=== PATIENT | female | born 1960 | race Caucasian/White ===

== ENCOUNTER 2017-04-26 07:56 | Emergency (ER) | payer OTHER ==
[~2017-04-26] VITALS: Ht 165.1 cm; Wt 90.7 kg
[~2017-04-26 07:56] MED LIST: CALCIUM 1,2001 EACH PO; CALCIUM 600 +1 EAC4 PO; FISH OIL PO; FISH OIL500 MG PO; HYDROCODON-ACE1 EA10 PO; STOOL SOFTENER100 MG PO; SYNTHROID150 MCG PO; VITAMIN D250000 UNIT PO
[2017-04-26] MEDS ORDERED: LISINOPRIL10 MG PO (08:22)
[2017-04-26] MEDS ORDERED: LOVASTATIN20 MG PO (08:22)
[2017-04-26] MEDS ORDERED: ZITHROMAX250 MG PO (08:28)
== END 2017-04-26 08:46 | disposition home or self-care (01) ==
LOC: ED 07:56
DX: J40 Bronchitis, not specified as acute or chronic (principal); F41.9 Anxiety disorder, unspecified; Z87.891 Personal history of nicotine dependence; Z88.5 Allergy status to narcotic agent; Z79.899 Other long term (current) drug therapy
CPT/HCPCS: 87081; 87880; 99283

== ENCOUNTER 2017-11-29 08:16 | Day surgery (SDC) | payer OTHER ==
[~2017-11-29] VITALS: Ht 165.1 cm; Wt 90.7 kg
[~2017-11-29 08:16] MED LIST changes: +LISINOPRIL10 MG PO; +LOVASTATIN20 MG PO; +ZITHROMAX250 MG PO
--- NOTE | 2017-11-29 10:24 | NUR ---
11/29/17 Denisha Montero 1021-PATIENT ARRIVED TO PACU ON 3L NC O2 SAT 99% PATIENT AWAKE DROWSY DENIES PAIN OR NAUSEA. ABDOMEN SOFT ENCOURAGED TO PASS FLATUS.
--- NOTE | 2017-12-02 08:11 | OR ---
[facility] [address], [place] [address] Signed DATE OF OPERATION: 11/29/2017 SURGEON: Linda Rodriguez MD PREOPERATIVE DIAGNOSES: 1. Anemia. 2. Constipation and diarrhea. 3. Generalized abdominal pain. 4. Nausea. POSTOPERATIVE DIAGNOSES: 1. Antral gastric ulcer. 2. Unremarkable colonoscopy. PROCEDURES: 1. EGD with CLOtest and biopsies of the duodenum and antrum. 2. Colonoscopy without biopsies. ESTIMATED BLOOD LOSS: None. INDICATIONS: Mick is a 57-year-old female, who was asked to see me for both upper and lower endoscopy. She has been anemic for quite some time. She has been using iron tablets without any success. She had a female exam recently and said everything went fine. In the office, she did not specifically talk about GI complaints, but yet there is a history of constipation, diarrhea, and generalized abdominal pain associated with nausea. She does not describe black tarry stool. There is no family history of colon cancer or polyps. In the office, I gave her a pamphlets on both upper and lower endoscopy. We discussed the nature of the 2 tests along with the risks including, but not limited to, gas bloating, crampy abdominal pain, bleeding, perforation, requiring surgery, and missed diagnosis. We also discussed the need for IV conscious sedation. She had expressed understanding and wished to proceed. PROCEDURE NOTE: Mick was taken into our endoscopy suite and placed in the supine semi-recumbent position. She was given divided doses of 9 mg of Versed and 175 mcg of fentanyl to cover the case. The posterior oropharynx was anesthetized with Hurricaine spray. A bite block was utilized for the case. The adult gastroscope was introduced and advanced all the way out into the third portion of the duodenum under direct visualization of Electronically Signed By: LINDA RODRIGUEZ MD 12/02/17 0811 PATIENT NAME: MICK CHOW OPERATIVE REPORT DATE OF : 56 PHYSICIAN: LINDA RODRIGUEZ MD REPORT #: [id number] REPORT IS CONFIDENTIAL AND NOT TO BE RELEASED WITHOUT AUTHORIZATION [facility] [address], [place] [address] Signed camera without difficulty. The duodenum and pyloric channel were unremarkable. She had just a little bit of inflammation in the pylorus and now in the antrum, she clearly has an ulcer with some dried blood. I am sure this is the source of her anemia. No active bleeding at this time. We took biopsies of the antrum for CLOtest as well as pathologic review. We took pictures for photodocumentation. The rest of the stomach was unremarkable. No evidence of hiatal hernia. The scope was withdrawn up to the area of GE junction, which was compliant without stricture. The Z-line remains intact. The distal middle and upper esophagus were unremarkable. After this, the gas was suctioned out and the colonoscope removed. Mick tolerated the procedure quite well. Mick was then rotated in the left lateral decubitus position. She was maintained on IV sedation with the Versed and fentanyl. A digital rectal exam was performed and this was unremarkable. The adult colonoscope was then introduced and advanced all around into the cecum under direct visualization of camera without difficulty. The scope was then slowly withdrawn. Her prep was good. We saw no pathology throughout the entire colon or rectum. Upon retroflexion of the scope, there was no additional pathology noted above the anal canal. After this, the gas was suctioned out and the colonoscope removed. Mick tolerated the procedure quite well. RECOMMENDATIONS: I will see Mick back in my office in 7 to 14 days to review her results. I wrote her a prescription for Prilosec 20 mg p.o. b.i.d. for 2 months with just a one refill. Linda Rodriguez MD ALB/MODL /[id number] cc: MD Moi Mckenna, [facility] Electronically Signed By: LINDA RODRIGUEZ MD 12/02/17 0811 PATIENT NAME: MICK CHOW OPERATIVE REPORT DATE OF : 56 PHYSICIAN: LINDA RODRIGUEZ MD REPORT #: [id number] REPORT IS CONFIDENTIAL AND NOT TO BE RELEASED WITHOUT AUTHORIZATION
== END 2017-11-29 11:00 | disposition home or self-care (01) ==
LOC: OPS 08:16 → DS 08:16 → OPS 09:45 → DS 09:45 → OPS 11:00
PROVIDERS: Colon & Rectal Surgery
PROC: 0DB78ZX Excision of Stomach, Pylorus, Via Natural or Artificial Opening Endoscopic, Diagnostic (ICD-10-PCS; 2017-11-29)
PROC: 0DJD8ZZ Inspection of Lower Intestinal Tract, Via Natural or Artificial Opening Endoscopic (ICD-10-PCS; principal; 2017-11-29 09:45)
PROC: 0DB98ZX Excision of Duodenum, Via Natural or Artificial Opening Endoscopic, Diagnostic (ICD-10-PCS; 2017-11-29 09:45)
DX: K29.50 Unspecified chronic gastritis without bleeding (principal); K29.80 Duodenitis without bleeding; E78.5 Hyperlipidemia, unspecified; M19.90 Unspecified osteoarthritis, unspecified site; M06.9 Rheumatoid arthritis, unspecified; F32.9 Major depressive disorder, single episode, unspecified; D64.9 Anemia, unspecified; E89.0 Postprocedural hypothyroidism; Z98.890 Other specified postprocedural states; Z90.49 Acquired absence of other specified parts of digestive tract; Z88.5 Allergy status to narcotic agent; Z79.899 Other long term (current) drug therapy
CPT/HCPCS: 86677; 88305; 99153; G0500; J2250; J3010; J7120